=== PATIENT | male | born 1990 | race Two or more races ===

== ENCOUNTER 2024-07-09 12:54 | Emergency (ER) | payer OTHER ==
[~2024-07-09] VITALS: Ht 170.2 cm; Wt 78.8 kg
[2024-07-09] MEDS ORDERED: MIRA3350 PO (15:38)
[2024-07-09] MEDS ORDERED: COLA100C5 PO (15:38)
[2024-07-09 16:00] VITALS: BP 141/88; TEMP 97.9; O2SAT 100
== END 2024-07-09 16:07 | disposition home or self-care (01) ==
LOC: M ED 12:54
DX: K64.8 Other hemorrhoids (principal); K59.00 Constipation, unspecified; Z79.899 Other long term (current) drug therapy